=== PATIENT | female | born 1945 | race Caucasian/White ===

== ENCOUNTER → 2016-08-07 | Day surgery (SDC) | payer MEDICARE ==
[~2016-08-07] MED LIST: AMLO5TAB2 PO; ASPI325T8 PO; IV RINGERS,LACTATED 1000ML 1,000 ML IV SCH; LIDOCAINE 2% PF Vial for OR 5 ML VIAL. ONE; LISI40TA PO; LUBI24CA7 PO; PROPOFOL 20 ML IV ONE
--- NOTE | 2016-08-07 08:22 | PDOC1 ---
HISTORY & PHYSICAL H&P Brandi Sotelo [id number] 1945 07/25/2016 01:20 PM 03/04 [employer] [facility], [facility] OUR PATIENTS COME FIRST [address] [place], [place] [id number] Ph. [phone] Patient: Brandi Sotelo Date of : 1945 Date: 07/25/2016 1:20 PM Historian: significant other Visit Type: Office Visit This 71 year old female presents for Constipation and Weight loss. History of Present Illness: 1. Constipation Additional information: Unchanged so far. Diet has improved. Has been on boost daily. Still not consistent. 2. Weight loss Additional information: Has gained 2 lbs from last visit. Stool studies are negative for parasite and blood test is negative for celiac disease. INTAKE COMMENTS: Intake Comments: Nurse Note: the pt is here today for follow-up for weight loss and constipation. The pt had some stool studies completed. Pt states the constipation has not changed per pt it is about the same as before. PROBLEM LIST: Problem Description Onset Date Chronic Notes Hypertension 06/27/2016 Y PAST MEDICAL/SURGICAL HISTORY (Detailed) Disease/disorder Onset Date Management Date Comments D&C tubal ligation Hypertension Medications (Active): Started Medication Directions Instruction Stopped Amitiza 24 mcg capsule take 1 capsule by oral route 2 times every day with food and water amlodipine 5 mg tablet take 1 tablet by oral route every day aspirin 325 mg tablet take 2 tablet by oral route every 6 hours as needed lisinopril 40 mg tablet take 1 tablet by oral route every day tramadol 50 mg tablet take 1 tablet by oral route every 6 hours as needed Allergies: Ingredient Reaction Medication Name Comment NO KNOWN ALLERGIES REVIEW OF SYSTEMS System Neg/Pos Details Constitutional Negative Chills, fever, malaise and weight loss. ENMT Negative Sore throat. Eyes Negative Double vision. Respiratory Negative Dyspnea and wheezing. Cardio Negative Chest pain and irregular heartbeat/palpitations. GI Positive See HPI. GI Negative See HPI. Negative Dysuria and hematuria. Endocrine Negative Cold intolerance and heat intolerance. Psych Negative Anxiety. Integumentary Negative Hives and rash. MS Negative Joint pain. Nash/Lymph Negative Easy bleeding and easy bruising. Allergic/Immuno Negative Food allergies. VITAL SIGNS Time BP mm/Hg Pulse /min Resp /min Temp F Ht ft Ht in Ht cm Wt lb Wt kg BMI kg/ m2 BSA m2 O2 Sat% 1:10 PM 110/76 86 17 96.0 5.0 5.00 165.10 115.60 52.435 19.24 96 Time Measured by 1:10 PM Haley Grman PHYSICAL EXAM: Exam Findings Details Constitutional Normal Well developed. Eyes Normal Conjunctiva - Right: Normal, Left: Normal. Sclera - Right: Normal, Left: Normal. Nasopharynx Normal Lips/teeth/gums - Normal. Neck Exam Normal Inspection - Normal. Thyroid gland - Normal. Respiratory Normal Inspection - Normal. Auscultation - Normal. Cardiovascular Normal Regular rate and rhythm. No murmurs, gallops, or rubs. Vascular Normal Pulses - Carotids: Normal, Femoral: Normal, Dorsalis pedis: Normal. Abdomen Normal Inspection - Normal. Anterior palpation - No guarding. No abdominal tenderness. No hepatic enlargement. No splenic enlargement. No hernia. No Ascites. Skin Normal Inspection - Normal. Extremity Normal No edema. Psychiatric Normal Oriented to time, place, person, and situation. Appropriate mood and effect. Assessment/Plan # Detail Type Description 1. Assessment Weight loss (R63.4). Patient Plan Schedule EGD with small bowel bx at [facility]. Plan Orders Further diagnostic evaluations ordered today include(s) EGD to be performed today. She is to schedule a follow-up visit with Alessandro Grimes MD upon completion of work-up Electronically signed by: Alessandro Grimes MD 07/25/2016 01:39 PM Document generated by: Alessandro Grimes 07/25/2016 01:39 PM Coleman Recinos MD, Family Practice; Norman Krause MD Internal Medicine; April Ledesma MD, Internal Medicine; Salvatore Grimes MD Internal Medicine; Alessandro Grimes MD, Gastroenterology; Ramírez Villa MD, Rheumatology, S. Eric Wang, Physical Medicine/Rehab Airam Monteiro APRN ------ 08/07/16 Patient seen and examined. No change in H&P. ALESSANDRO GRIMES MD Aug 07, 2016 08:22
--- NOTE | 2016-08-07 09:39 | PDOC4 ---
GI OP Report - Dr. Lobo Date/Time DATE: 08/07/16 TIME: 09:34 Attending Physician Alessandro Lobo MD Referring Physician Indications Suspected intestinal malabsorption, Weight loss Pre-Op See the Anesthesia note for documentation of the administered medications Procedures Upper GI endoscopy Findings - Normal esophagus. - Normal stomach. - Normal examined duodenum. - Normal examined jejunum. Biopsied. Plan - Discharge patient to home. - Patient has a contact number available for emergencies. The signs and symptoms of potential delayed complications were discussed with the patient. Return to normal activities tomorrow. Written discharge instructions were provided to the patient. - Resume regular diet. - Continue present medications. - Await pathology results. - Return to my office as needed. ALESSANDRO LOBO MD Aug 07, 2016 09:39
[2016-08-07 09:41] VITALS: BP 167/73
--- NOTE | 2016-08-09 13:31 | PATHOLOGY ---
PATHOLOGY REPORT * * * * * * * * FINAL DIAGNOSIS: Small bowel biopsy, jejunum: - No significant pathologic abnormalities. COMMENT: Sections of the jejunal biopsy reveal segments of small intestine mucosa. Where best oriented, the mucosal villi appear normal. There are no sprue-like changes or significant inflammatory changes. (JPM:; d/t: 08/09/16) REPORT ELECTRONICALLY SIGNED BY: Adrien Ridley M.D. DATE/TIME: 08/09/2016 13:31 * * * * * * * * GROSS PATHOLOGY: Received in formalin labeled "Tavia Sotelo, jejunal biopsy," are 5 segments of carballo soft tissue measuring 0.8 x 0.6 x 0.3 cm in aggregate dimensions and ranging from 0.2 to 0.4 cm in maximum dimension. The specimen is submitted entirely in cassette A1. (KAH; 08/08/2016) INITIAL CPT CODE(S): A; 19853 Professional services performed [place] [facility] [address] Technical services performed by [facility] at [address] [place] [address]. SPECIMEN(S) RECEIVED: A.Jejunal biopsy CLINICAL HISTORY: Weight loss PATIENT: TAVIA SOTELO /AGE: 3 1945 (Age: 71) PATIENT #: [id number] ALT CASE #: SPECIMEN COLLECTION DATE: 08/07/2016 SPECIMEN RECEIVED DATE: 08/07/2016 [facility] - [address] [place] [address] - PHONE: [phone] * * * END OF REPORT * * *
== END | disposition home or self-care (01) ==
LOC: SURG 07:50
PROVIDERS: ATTEND Internal Medicine Gastroenterology
DX: R63.4 Abnormal weight loss (principal); I10 Essential (primary) hypertension; M19.90 Unspecified osteoarthritis, unspecified site; F17.200 Nicotine dependence, unspecified, uncomplicated; Z98.51 Tubal ligation status; Z72.89 Other problems related to lifestyle
CPT/HCPCS: 43239; J2704